=== PATIENT | female | born 1975 | race Caucasian/White ===

== ENCOUNTER 2017-11-19 15:34 | Emergency (ER) | payer BC ==
[~2017-11-19] VITALS: Ht 167.6 cm; Wt 94.5 kg
[2017-11-19 15:48] VITALS: TEMP 36.9; Ht 167.6 cm; Wt 94.5 kg
[2017-11-19] MEDS ORDERED: ONDANSETRON INJ 2 MG/ML 2 ML VIAL IV STA (16:09)
[2017-11-19] MEDS ORDERED: SODIUM CHLORIDE 0.9% 1000ML 1,000 ML IV STA (16:09)
[2017-11-19] MEDS ORDERED: MoRPHine SULFATE 4 MG/ML 1 ML CARP\\VIAL IV PRN (16:15)
[2017-11-19 17:10] LABS: BASO % 0.3 %; BASO ABS # 0.03 K/uL (0-0.2); EOS % 0.7 %; EOS ABS # 0.07 K/uL (0-0.5); HEMATOCRIT 45.7 % (37-47); HEMOGLOBIN 15.7 g/dL (12.0-16.0); IG# 0.02 K/uL (0.00-0.02); LYMPH % 17.2 %; LYMPH ABS # 1.65 K/uL (1.2-3.4); MEAN CELL VOLUME 86.1 fL (80-100); MEAN CORPUSCULAR HEMOGLOBIN 29.6 pg (25-34); MEAN CORPUSCULAR HGB CONC 34.4 g/dl (32-36); MEAN PLATELET VOLUME 9.6 fL (7.4-10.4); MONO % 3.6 %; MONO ABS # 0.35 K/uL (0.11-0.59); NEUT ABS # 7.48 K/uL (1.4-6.5); PLATELET COUNT 332 K/uL (130-400); RED CELL DISTRIBUTION WIDTH CV 13.4 % (11.5-14.5); RED CELL DISTRIBUTION WIDTH SD 41.9 fL (36.4-46.3)
[2017-11-19 17:25] LABS: ALBUMIN 4.3 gm/dl (3.4-5.0); CALCIUM 9.5 mg/dl (8.5-10.1); CREATININE 0.73 mg/dl (0.60-1.20); POTASSIUM 3.8 mmol/L (3.5-5.1); TOTAL PROTEIN 8.2 gm/dl (6.4-8.2)
[2017-11-19] MEDS ORDERED: OPTIRAY 320 IV PRN (17:30)
[2017-11-19 17:56] LABS: PTT PATIENT 24.8 SECONDS (21.0-31.0)
--- NOTE | 2017-11-19 19:10 | DIAGNOSTIC IMAGING REPORT ---
ABD/PELVIS IV AND ORAL CONT CT DOSE: 781.59 mGy.cm HISTORY: Pain ABDOMINAL PAIN/GI TECHNIQUE: Multiaxial CT images of the abdomen and pelvis were performed following the use of intravenous and oral contrast. A dose lowering technique was utilized adhering to the principles of ALARA. COMPARISON STUDY: 07/24/2009 FINDINGS: Lung bases are clear. Liver spleen and pancreas are uniform. Kidneys negative for hydronephrosis. Bowel pattern is considered nonobstructive. There is a 6 x 5 cm left ovarian cyst. Uterus is midline. Bladder is midline. There is a slight degree of wall thickening of the sigmoid and descending colon. IMPRESSION: 1. Left ovarian cyst measuring 6 x 5 cm. 2. Slight wall edema of the sigmoid and descending colon indicative of either technically poor distention versus mild colitis. The above report was generated using voice recognition software. It may contain grammatical, syntax or spelling errors. Electronically signed by: Hector Jain M.D. 11/19/2017 7:09 PM Dictated Date/Time: 11/19/2017 7:05 PM
[2017-11-19] MEDS ORDERED: ONDA4TAB10 SL (19:42)
[2017-11-19] MEDS ORDERED: ONDANSETRON HOME PACK 4MG OD TAB PO ONE (19:45)
[2017-11-19 19:50] VITALS: BP 129/71; PULSE 74; O2SAT 97
--- NOTE | 2017-11-19 23:27 | EMERGENCY ROOM VISIT NOTE ---
ED Visit Note First contact with patient: 15:52 Chief Complaint: Right sided back pain, lower abdominal pain and bloody stools. History of Present Illness: Ms. Vines is a 42-year-old white female who ambulates into the ED complaining of right mid thoracic back pain, lower abdominal pain predominantly on the right, nausea and bright red blood per rectum. Starkly patient reports she has a history of reflux, gastritis, hiatal hernia, hematemesis and is status post appendectomy and tubal ligation. Patient reports approximately 1 week ago she started developing right side mid thoracic back pain. Since that time her pain has been constant. Then this morning approximately 7 AM she reports an acute onset of mid to lower bilateral abdominal pain with right-sided prominence. Since that time her pain has been constant and waxes and wanes in intensity. At its worst she describes her discomfort as sharp and rates her discomfort 6/10. She is unsure if the back pain is related to the back pain because it does not exacerbate at the same time. She has not identified any aggravating or alleviating factors related to the pain. She has not taken any medications for pain prior to arrival at the hospital. Associated with her pain she reports she has been having hot flashes and chills but has not checked her temperature to see if she has been febrile, she has been nauseated but has not vomited but has had dry heaves and approximately 30 minutes after the onset of pain she reports that she has had bright red blood per rectum and has had multiple bowel movements all of which have been bright red. Additionally she reports her last menstrual cycle which ended November 10 was normal intensity but she reports that she had significant bleeding and pain; she has not followed up with [facility]. Patient denies skin eruptions, skin color changes, headache, dizziness, lightheadedness, upper respiratory tract symptoms, chest pain, shortness of breath, urinary symptoms, hematuria, vaginal bleeding, vaginal discharge, other abnormal bleeding, easy bruising. Review of Systems: As noted above in history of present illness. All body systems were reviewed and found to be negative as noted above. Past Medical History: As previously noted, asthma and status post unspecified sinus surgery. Current Medications: Patient denies. Allergies to Medications: Codeine; nausea/vomiting. Social History: Patient is currently employed; she feels safe in her home environment; she admits to tobacco use and denies alcohol use Physical Examination: Vital Signs: Date Time Temp Pulse Resp B/P (MAP) Pulse Ox O2 Delivery O2 Flow Rate FiO2 11/19/17 19:50 74 18 129/71 97 11/19/17 19:07 71 16 132/74 95 Room Air 11/19/17 17:54 77 20 147/87 98 Room Air 11/19/17 16:50 80 18 130/88 97 Room Air 11/19/17 15:48 36.9 76 20 124/83 98 Room Air GENERAL: 42-year-old female in mild distress due to pain, nontoxic-appearing, afebrile and hemodynamically stable. NEUROLOGICAL: Awake, alert and oriented to person, place and time. Answering questions appropriately and following commands. Normal gait. Good hand eye coordination. No focal motor or sensory deficits. SKIN: Warm, dry and pink. No soft tissue eruptions or trauma noted. HEENT: Atraumatic and normocephalic. PERRLA. Sclera white and conjunctiva pink. No drainage from naris. Oral cavity moist and pink. Pharynx is nonerythematous or edematous. Speech normal. No lymphadenopathy. Trachea midline. No jugular venous distention. BACK: No tenderness over the bony thoracic and lumbar spine. Mild tenderness in the right sided paraspinous muscles in the CVA area. No palpable muscle spasm. Right sided CVA tenderness. THORAX: Lungs sounds are clear to auscultation and equal bilaterally with symmetrical chest wall. No wheezing, rales or rhonchi. No crepitus, tenderness , subcutaneous air or deformities noted. HEART: Regular rate and rhythm. No gallops, rubs or murmurs are appreciated. ABDOMEN: Obese and soft with mild mid to lower quadrant abdominal pain and mild epigastric pain. Positive bowel sounds in all quadrants. No guarding, rigidity or organomegaly. RECTUM: Small external hemorrhoid that is not actively bleeding noted at approximately 6:00. Normal rectal tone. No palpable rectal masses. Visibly bright red blood from sample. Guaiac tested positive. EXTREMITIES: Moves all extremities well on command and with purpose. All distal neurovascular statuses are intact and equal bilaterally. No calf tenderness or cords. ED Course: Patient is assessed as noted above. Patient's medication list was reviewed. Laboratory Testing: Test 11/19/17 16:45 11/19/17 17:08 11/19/17 17:37 Range/Units White Blood Count 9.60 4.8-10.8 K/uL Red Blood Count 5.31 4.2-5.4 M/uL Hemoglobin 15.7 12.0-16.0 g/dL Hematocrit 45.7 37-47 % Mean Corpuscular Volume 86.1 80-100 fL Mean Corpuscular Hemoglobin 29.6 25-34 pg Mean Corpuscular Hemoglobin Concent 34.4 32-36 g/dl Platelet Count 332 130-400 K/uL Mean Platelet Volume 9.6 7.4-10.4 fL Neutrophils (%) (Auto) 78.0 % Lymphocytes (%) (Auto) 17.2 % Monocytes (%) (Auto) 3.6 % Eosinophils (%) (Auto) 0.7 % Basophils (%) (Auto) 0.3 % Neutrophils # (Auto) 7.48 1.4-6.5 K/uL Lymphocytes # (Auto) 1.65 1.2-3.4 K/uL Monocytes # (Auto) 0.35 0.11-0.59 K/uL Eosinophils # (Auto) 0.07 0-0.5 K/uL Basophils # (Auto) 0.03 0-0.2 K/uL RDW Standard Deviation 41.9 36.4-46.3 fL RDW Coefficient of Variation 13.4 11.5-14.5 % Immature Granulocyte % (Auto) 0.2 % Immature Granulocyte # (Auto) 0.02 0.00-0.02 K/uL Sodium Level 137 136-145 mmol/L Potassium Level 3.8 3.5-5.1 mmol/L Chloride Level 104 98-107 mmol/L Carbon Dioxide Level 27 21-32 mmol/L Anion Gap 6.0 3-11 mmol/L Blood Urea Nitrogen 10 7-18 mg/dl Creatinine 0.73 0.60-1.20 mg/dl Est Creatinine Clear Calc Drug Dose 113.9 ml/min Estimated GFR () 116.1 Estimated GFR (Non- 100.2 BUN/Creatinine Ratio 13.9 10-20 Random Glucose 128 70-99 mg/dl Calcium Level 9.5 8.5-10.1 mg/dl Total Bilirubin 0.4 0.2-1 mg/dl Direct Bilirubin 0.1 0-0.2 mg/dl Aspartate Amino Transf (AST/SGOT) 13 15-37 U/L Alanine Aminotransferase (ALT/SGPT) 22 12-78 U/L Alkaline Phosphatase 92 45-117 U/L Total Protein 8.2 6.4-8.2 gm/dl Albumin 4.3 3.4-5.0 gm/dl Lipase 129 73-393 U/L Human Chorionic Gonadotropin, Qual NEG NEG Urine Color YELLOW Urine Appearance CLEAR CLEAR Urine pH 5.0 4.5-7.5 Urine Specific [place] 1.013 1.000-1.030 Urine Protein NEG NEG Urine Glucose (UA) NEG NEG Urine Ketones NEG NEG Urine Occult Blood NEG NEG Urine Nitrite NEG NEG Urine Bilirubin NEG NEG Urine Urobilinogen NEG NEG Urine Leukocyte Esterase NEG NEG Prothrombin Time 10.4 9.0-12.0 SECONDS Prothromb Time International Ratio 1.0 0.9-1.1 Activated Partial Thromboplast Time 24.8 21.0-31.0 SECONDS Partial Thromboplastin Ratio 1.0 Contrast Abdominal/Pelvic CT: Were reviewed by myself and read by the radiologist showing lung bases, liver/spleen/pancreas are uniform, kidneys are negative for hydronephrosis, bowel pattern is nonobstructive, 6 x 5 cm left ovarian cyst, uterus is midline, bladder is midline, slight degree of wall thickening of the sigmoid and descending colon indicative of poor distention or mild colitis. Patient was initially hydrated with normal saline; patient was offered 4 mg of morphine IV for pain and 4 mg of Zofran IV and declined; "I am stubborn." Patient was reassessed multiple times during her stay in the emergency department. I did request a stool study from the patient but she was unable to provide one. Patient's case was reviewed with Dr. Augustin; we agreed on diagnostic approach, treatment, disposition and plan. Patient was educated about today's findings and instructed on her treatment plan ; she verbalized understanding and agreement with this plan. Clinical Impression: Acute hemorrhagic colitis. Right sided back pain. Hematochezia. Decision-Making: Initially my differential diagnosis I considered pyelonephritis , pancreatitis, perforated viscus, acute cholecystitis, muscle spasm, ureter calculus and other causes. Disposition: Patient discharged home in stable condition; prior to departure she was reassessed and subjectively reported she was feeling better and rated her discomfort 5/10. She reported resolution of nausea. Plan: Comfort measures including ibuprofen and acetaminophen were discussed with the patient. Patient was prescribed Zofran ODT, 4 mg every 6 hours for nausea/vomiting. Patient was encouraged use a bland diet and stay well-hydrated with increased clear fluids. Patient was encouraged to call her PCP in the morning and inform them of today' s ED visit and request follow-up care and treatment and possible referral to gastroenterology. Patient was encouraged return the ED for worsening/uncontrolled pain, fevers, worsening nausea/vomiting, worsening bloody stools or any new/concerning symptoms.
== END 2017-11-19 19:49 | disposition home or self-care (01) ==
LOC: C.EDB 15:36 → C.EDA 19:49
DX: K52.9 Noninfective gastroenteritis and colitis, unspecified (principal); M54.5 Low back pain; K92.1 Melena; F17.200 Nicotine dependence, unspecified, uncomplicated; Z88.5 Allergy status to narcotic agent

== ENCOUNTER 2017-11-21 15:51 | Emergency (ER) | payer BC ==
[~2017-11-21] VITALS: Ht 167.6 cm; Wt 95.3 kg
[~2017-11-21 15:51] MED LIST: ONDA4TAB10 SL
[2017-11-21 15:59] VITALS: Ht 167.6 cm; Wt 95.3 kg
[2017-11-21] MEDS ORDERED: ACETAMINOPHEN IV 100 ML IV STA (16:46)
[2017-11-21] MEDS ORDERED: SODIUM CHLORIDE 0.9% 1000ML 1,000 ML IV STA (16:46)
[2017-11-21] MEDS ORDERED: ONDANSETRON INJ 2 MG/ML 2 ML VIAL IV STA (16:46)
[2017-11-21] MEDS ORDERED: PANTOprazole INJ 40 MG in SYRINGE 0 ML IV ONE (17:00)
[2017-11-21] MEDS ORDERED: OPTIRAY 320 IV PRN (17:00)
--- NOTE | 2017-11-21 17:10 | EMERGENCY ROOM VISIT NOTE ---
History Report prepared by Juan: Nicholas Ayala Under the Supervision of: Dr. Anderson Funez M.D. First contact with patient: 16:42 Chief Complaint: GI ASSESSMENT Stated Complaint: PAIN IN RIGHT SIDE, VOMIT BLOOD Nursing Triage Summary: Patient ambulatory to triage with an upright and steady gait, states "I was in on Monday. I was having a lot of blood out of my rectum. I am having a lot of pain under my right breast, in my right flank and in my right lower back. I vomited up blood yesterday afternoon that was bright red. I haven't had an appetite since then, so I haven't eaten. I am drinking fluids, however. I haven't had a BM since yster so I don't know if the bleeding is continuing. With the BM yesterday, I had bright red blood. I followed up with my PCP today and he sent me back over." History of Present Illness The patient is a 42 year old female who presents to the Emergency Room with complaints of abdominal pain, intermittent vomiting with blood, and rectal bleeding. The patient reports that she was in the ER 2 days ago for her symptoms. She states that she followed up with her PCP, Dr. Haley Gray today, who instructed her to report to the ER with concerns of active bleeding. She notes that her vomit and her stool are red. She states that she vomited with blood and had multiple bowel movements with blood 2 days ago, but notes that yesterday she only vomited once and had 3 bowel movements. She states that she did not vomit today, but also reports that she did not have anything to eat. She notes that she did not have a bowel movement today. The patient reports a low grade fever yesterday, and states that she has been nauseous since 2 days ago. She notes that her abdominal pain radiates to her right side and back. The patient also reports that she had a migraine that started an hour ago, noting a history of migraines. She states that she last had liquids today at 1 PM. The patient denies a history of these symptoms. She denies taking blood thinners and reports that she is not on regular medications. She denies regular alcohol use. Source of History: patient Onset: 2 days ago Position: abdomen, other (rectum) Quality: other (vomiting, rectal bleeding) Timing: intermittent (vomiting) Associated Symptoms: + fevers (yesterday), + headache Review of Systems See HPI for pertinent positives and negatives. A total of ten systems were reviewed and were otherwise negative. Past Medical & Surgical Medical Problems: (1) Asthma (2) Stomach problems Family History Cancer Diabetes mellitus Heart disease Hypertension Social History Smoking Status: Current Every Day Smoker Current/Historical Medications Scheduled Ondasetron Odt (Zofran Odt), 4 MG SL Q6H Ondasetron Odt (Zofran Odt), 4 MG SL Q6H Pantoprazole (Protonix), 1 TAB PO DAILY Prednisone (Prednisone), 3 TAB PO DAILY Allergies Coded Allergies: Codeine (Verified Allergy, Unknown, 11/21/17) Physical Exam Vital Signs Date Time Temp Pulse Resp B/P (MAP) Pulse Ox O2 Delivery O2 Flow Rate FiO2 11/21/17 21:47 37.0 57 18 124/68 95 11/21/17 21:37 57 18 124/68 95 Room Air 11/21/17 20:47 60 11/21/17 20:10 59 18 122/76 96 Room Air 11/21/17 18:33 58 12 127/65 97 Room Air 11/21/17 15:59 37.0 77 20 114/77 94 Room Air Physical Exam GENERAL: Awake, alert, well-appearing, in no distress HENT: Normocephalic, atraumatic. Mucous membranes are dry. EYES: Normal conjunctiva. Sclera non-icteric. NECK: Supple. No nuchal rigidity. FROM. No JVD. RESPIRATORY: Clear to auscultation. CARDIAC: Regular rate, normal rhythm. Extremities warm and well perfused. Pulses equal. ABDOMEN: Soft, non-distended. Mild right lower quadrant tenderness to palpation. No rebound or guarding. No masses. RECTAL: Female early breastfeeding care specialist present. Brown stool, no melena, and no gross blood. Scant guaiac positive. MUSCULOSKELETAL: Chest examination reveals no tenderness. The back is symmetrical on inspection without obvious abnormality. There is no CVA tenderness to palpation. No joint edema. LOWER EXTREMITIES: Calves are equal size bilaterally and non-tender. No edema. No discoloration. NEURO: Normal sensorium. No sensory or motor deficits noted. SKIN: No rash or jaundice noted. Medical Decision & Procedures ER Provider Diagnostic Interpretation: Radiology results as stated below per my review and radiologist interpretation: ABD/PELVIS IV CONTRAST ONLY CLINICAL HISTORY: 42 years-old Female presenting with RLQ pain, hematochezia, hemoptysis. TECHNIQUE: Multidetector CT of the abdomen and pelvis was performed after the administration of intravenous contrast. IV contrast: 92 mL of Optiray 320. A dose lowering technique was used consistent with the principles of ALARA (as low as reasonably achievable). COMPARISON: 11/19/2017. CT DOSE (mGy.cm): The estimated cumulative dose is 577.46 mGy.cm. FINDINGS: Business Objects Developer topogram: Unremarkable. Lung bases: Minimal basilar opacities, likely atelectasis. Normal heart size. No pericardial or pleural effusion. Liver: Normal morphology. No liver lesion. Patent hepatic vasculature. Biliary: No intrahepatic or extrahepatic biliary ductal dilatation. Normal gallbladder. Pancreas: Normal. Spleen: Normal. Adrenal glands: Normal. Kidneys and ureters: Normal. No hydronephrosis. Bladder: Normal. Pelvic organs: Normal uterus. Normal right ovary. The left ovary contains a 6.7 cm cystic lesion. This appears simple. Bowel: Mild gaseous distention of proximal small bowel. No bowel obstruction. Normal appearance of the colon and rectum. The presence of oral contrast and large bowel limits evaluation for gastrointestinal hemorrhage. Peritoneal cavity: No free fluid or intraperitoneal gas. Lymph nodes: No enlarged lymph nodes in the abdomen or pelvis. Vasculature: Aorta and IVC patent and normal in caliber. Abdominal wall: Normal. Musculoskeletal: Normal. IMPRESSION: 1. No acute intra-abdominal bowel pathology. 2. 6.7 cm left ovarian cystic lesion, which is simple appearing. Follow-up pelvic ultrasound recommended given the size to ensure resolution. Primary care physician (PCP) and/or surgical follow-up recommended until clinical, surgical, or pathologic diagnosis established. Electronically signed by: Dariel Erazo M.D. 11/21/2017 6:32 PM Dictated Date/Time: 11/21/2017 6:27 PM CHEST ONE VIEW PORTABLE CLINICAL HISTORY: 42 years-old Female presenting with ABDOMINAL PAIN/GI. TECHNIQUE: Portable upright AP view of the chest was obtained. COMPARISON: 03/20/2011. FINDINGS: Cardiomediastinal silhouette normal. No focal opacity. No large effusion or pneumothorax. Osseous structures normal. Upper abdomen normal. IMPRESSION: 1. No acute cardiopulmonary disease. Electronically signed by: Dariel Erazo M.D. 11/21/2017 6:07 PM Dictated Date/Time: 11/21/2017 6:06 PM Laboratory Results 11/21/17 17:11 Red Blood Count 4.79, Mean Corpuscular Volume 86.8, Mean Corpuscular Hemoglobin 29.2, Mean Corpuscular Hemoglobin Concent 33.7, Mean Platelet Volume 9.5, Neutrophils (%) (Auto) 66.3, Lymphocytes (%) (Auto) 29.5, Monocytes (%) (Auto) 2.9, Eosinophils (%) (Auto) 1.0, Basophils (%) (Auto) 0.2, Neutrophils # (Auto) 5.78, Lymphocytes # (Auto) 2.57, Monocytes # (Auto) 0.25, Eosinophils # (Auto) 0.09, Basophils # (Auto) 0.02 11/21/17 17:11 Test 11/21/17 17:11 11/21/17 19:05 White Blood Count 8.72 K/uL (4.8-10.8) Red Blood Count 4.79 M/uL (4.2-5.4) Hemoglobin 14.0 g/dL (12.0-16.0) Hematocrit 41.6 % (37-47) Mean Corpuscular Volume 86.8 fL (80-100) Mean Corpuscular Hemoglobin 29.2 pg (25-34) Mean Corpuscular Hemoglobin Concent 33.7 g/dl (32-36) Platelet Count 325 K/uL (130-400) Mean Platelet Volume 9.5 fL (7.4-10.4) Neutrophils (%) (Auto) 66.3 % Lymphocytes (%) (Auto) 29.5 % Monocytes (%) (Auto) 2.9 % Eosinophils (%) (Auto) 1.0 % Basophils (%) (Auto) 0.2 % Neutrophils # (Auto) 5.78 K/uL (1.4-6.5) Lymphocytes # (Auto) 2.57 K/uL (1.2-3.4) Monocytes # (Auto) 0.25 K/uL (0.11-0.59) Eosinophils # (Auto) 0.09 K/uL (0-0.5) Basophils # (Auto) 0.02 K/uL (0-0.2) RDW Standard Deviation 42.9 fL (36.4-46.3) RDW Coefficient of Variation 13.5 % (11.5-14.5) Immature Granulocyte % (Auto) 0.1 % Immature Granulocyte # (Auto) 0.01 K/uL (0.00-0.02) Anion Gap 7.0 mmol/L (3-11) Est Creatinine Clear Calc Drug Dose 108.4 ml/min Estimated GFR () 108.8 Estimated GFR (Non- 93.9 BUN/Creatinine Ratio 11.2 (10-20) Calcium Level 8.9 mg/dl (8.5-10.1) Total Bilirubin 0.4 mg/dl (0.2-1) Direct Bilirubin < 0.1 mg/dl (0-0.2) Aspartate Amino Transf (AST/SGOT) 11 U/L (15-37) Alanine Aminotransferase (ALT/SGPT) 20 U/L (12-78) Alkaline Phosphatase 79 U/L (45-117) Total Protein 7.1 gm/dl (6.4-8.2) Albumin 3.6 gm/dl (3.4-5.0) Lipase 124 U/L (73-393) Urine Color YELLOW Urine Appearance CLEAR (CLEAR) Urine pH 5.0 (4.5-7.5) Urine Specific [place] > 1.045 (1.000-1.030) Urine Protein NEG (NEG) Urine Glucose (UA) NEG (NEG) Urine Ketones NEG (NEG) Urine Occult Blood NEG (NEG) Urine Nitrite NEG (NEG) Urine Bilirubin NEG (NEG) Urine Urobilinogen NEG (NEG) Urine Leukocyte Esterase NEG (NEG) Urine Test NEG (NEG) Laboratory results reviewed by me Medications Administered Medications (Trade) Dose Ordered Sig/Alison Route Start Time Stop Time Status Last Admin Dose Admin Sodium Chloride 1,000 ml @ 999 mls/hr Q1H1M STAT IV 11/21/17 16:46 11/21/17 17:46 DC 11/21/17 16:46 999 MLS/HR Ondansetron HCl (Zofran Inj) 4 mg NOW STAT IV 11/21/17 16:46 11/21/17 16:54 DC 11/21/17 16:46 4 MG Pantoprazole Sodium 40 mg/ Syringe 10 ml @ 5 mls/min NOW ONCE IV 11/21/17 17:00 11/21/17 17:01 DC 11/21/17 17:00 5 MLS/MIN Acetaminophen 100 ml @ 400 mls/hr NOW STAT IV 11/21/17 16:46 11/21/17 17:00 DC 11/21/17 16:46 400 MLS/HR Prednisone (PredniSONE TAB) 60 mg NOW STAT PO 11/21/17 21:24 11/21/17 21:25 DC 11/21/17 21:41 60 MG ED Course 1647: The patient was evaluated in room C6. A complete history and physical exam was performed. 1734: I performed a rectal exam on the patient with a female early breastfeeding care specialist present. The exam showed brown stool, no melena, and no gross blood. Scant guaiac positive. 1908: I discussed the patient's case with Dr. Howard - Segundo GALLEGO. He felt it was reasonable to admit the patient based on her case, and states a possible endoscopy can be given. 1933: I updated the patient with her current results. 1935: I spoke to Dr. Zeng - [facility] Hospitalist. He will reevaluate the patient for hospitalization. Medical Decision I reviewed the patient's past medical history, medications, and the nursing notes as described above. Differential diagnosis: Etiologies such as appendicitis, diverticulitis, PUD, biliary pathology, UTI, pancreatitis, obstruction, mesenteric ischemia, aortic pathology, infections, inflammatory bowel disease, renal colic, as well as others were entertained. The patient is a 42-year-old woman with a past medical history of migraines who presents emergency department with persistent right lower quadrant abdominal pain associated hematochezia but then developed several episodes of hematemesis (food covered in red blood) yesterday now presents emergency department after following up with her PCP today for the symptoms in the setting of being seen on Monday here in the emergency department with unremarkable labs, negative hcg , and CT demonstrating possible colitis per hpi. Of note, patient reports that bloody emesis occurred on first episode of vomiting. On arrival the patient is no acute distress, afebrile stable vital signs. On exam, mild right lower quadrant tenderness without peritoneal signs. Rectal exam demonstrates brown stool that is scant guaiac positive. No red blood or melena. Labs unremarkable. Hemoglobin is 14.0 down from 15.7 on 11/19 however also in the setting receiving IV fluids on her prior ED visit. Chemistry unremarkable with BUN 9. No evidence of acidosis. CT abdomen and pelvis unremarkable without acute findings, although some limitation given residual oral contrast within the colon. Revisualization of left 6.7cm, apparent simple ovarian cyst. Of note , no free fluid on CT and no left sided abdominal sx. While reassuring w/u with stable vital signs and no repeat hematemesis/hematochezia today and thus no emergent indication for admission/intervention, this is the patient's second ED visit for similar sx and so she is agreeable for admission. Case was discussed with JULIÁN Saldaña on-call for segundo gray, given the patient's repeat visit for similar GI bleed symptoms, we agree it is reasonable to admit for observation and possible endoscopy. Case was discussed with Moises Goff, [facility] [place] [place] admitting resident and they will evaluate the patient for possible admission. Patient was evaluated by resident and the patient was subsequently agreeable for outpatient f/u with GI for GI bleeding and with DIGITAL STRATEGY MANAGER for left ovarian cyst identified on CT. Resident d/w CM to assist with arranging prompt outpatient follow-ups. Given there is no explanation at this time for the patient's right lower quadrant tenderness I explained to the patient that narcotics are not indicated. However, she was agreeable to try a short course of prednisone as well as Tylenol. Patient advised to avoid ibuprofen at this time given her GI bleeding. Patient will take daily PPI. Patient understands strict return instructions to return to ED. Findings and plan for follow-up reviewed with patient. Patient agreeable and d/c'd per discharge instructions. Medication Reconcilliation Current Medication List: was personally reviewed by nc Blood Pressure Screening Patient's blood pressure: Normal blood pressure Blood pressure disposition: Did not require urgent referral Consults Time Called: 1848 Consulting Physician: Dr. Howard - Segundo GALLEGO Returned Call: 1908 I discussed the patient's case with Dr. Howard - on-call for Segundo GALLGEO. He felt it was reasonable to admit the patient based on her case, and states a possible endoscopy can be given. Additional Consults: Time Called: 1929 Consulted Physician: Dr. Zeng - [facility] Hospitalist Returned Call: 1935 Additional Comments: I spoke to Dr. Goff - [facility] admitting resident. He will reevaluate the patient for admission. Impression Primary Impression: GI bleed Additional Impression: Left ovarian cyst Scribe Attestation The scribe's documentation has been prepared under my direction and personally reviewed by me in its entirety. I confirm that the note above accurately reflects all work, treatment, procedures, and medical decision making performed by me. Departure Information Dispostion Home / Self-Care Prescriptions Prednisone (Prednisone) 20 Mg Tab 3 TAB PO DAILY for 4 Days, #12 TAB FOR 4 DAYS Prov: Anderson Funez M.D. 11/21/17 Pantoprazole (PROTONIX) 40 Mg Tab 1 TAB PO DAILY for 14 Days, #14 TAB Prov: Anderson Funez M.D. 11/21/17 Ondasetron Odt (ZOFRAN ODT) 4 Mg Tab 4 MG SL Q6H for Nausea, #10 TAB Prov: Anderson Funez M.D. 11/21/17 Referrals Leonel De Leon M.D. (PCP) Patient Instructions ED Cyst Ovarian, GI Bleeding - [facility], [facility] Additional Instructions Please follow up with gastroenterology and gynecology as will be arranged by our case management team for re-evaluation. The cause of your symptoms is unclear at this time however will require further evaluation with likely endoscopy. Additionally you should follow-up with gynecology for your left ovarian cyst. Otherwise, your exam, lab results, and CT scan did not show signs of an emergent condition at this time. Acetaminophen for pain and fevers as needed. Zofran as needed for nausea. Protonix for acid reduction. Prednisone, as anti-inflammatory, for your right lower abdominal pain. Drink plenty of fluids to ensure hydration. Return to the emergency department for worsening symptoms as described in the accompanying instructions. Problem Qualifiers
[2017-11-21 17:25] LABS: BASO % 0.2 %; BASO ABS # 0.02 K/uL (0-0.2); EOS ABS # 0.09 K/uL (0-0.5); HEMATOCRIT 41.6 % (37-47); IG# 0.01 K/uL (0.00-0.02); LYMPH % 29.5 %; LYMPH ABS # 2.57 K/uL (1.2-3.4); MEAN CELL VOLUME 86.8 fL (80-100); MEAN CORPUSCULAR HEMOGLOBIN 29.2 pg (25-34); MEAN CORPUSCULAR HGB CONC 33.7 g/dl (32-36); MEAN PLATELET VOLUME 9.5 fL (7.4-10.4); MONO % 2.9 %; MONO ABS # 0.25 K/uL (0.11-0.59); NEUT % 66.3 %; NEUT ABS # 5.78 K/uL (1.4-6.5); PLATELET COUNT 325 K/uL (130-400); RED CELL DISTRIBUTION WIDTH CV 13.5 % (11.5-14.5); RED CELL DISTRIBUTION WIDTH SD 42.9 fL (36.4-46.3); WHITE BLOOD COUNT 8.72 K/uL (4.8-10.8)
[2017-11-21 17:49] LABS: ALBUMIN 3.6 gm/dl (3.4-5.0); ALKALINE PHOSPHATASE 79 U/L (45-117); ALT/SGPT 20 U/L (12-78); AST/SGOT 11 U/L (15-37); BLOOD UREA NITROGEN 9 mg/dl (7-18); CALCIUM 8.9 mg/dl (8.5-10.1); CARBON DIOXIDE 26 mmol/L (21-32); CREATININE 0.77 mg/dl (0.60-1.20); GLUCOSE 79 mg/dl (70-99); LIPASE 124 U/L (73-393); POTASSIUM 3.9 mmol/L (3.5-5.1); SODIUM 139 mmol/L (136-145); TOTAL PROTEIN 7.1 gm/dl (6.4-8.2)
--- NOTE | 2017-11-21 18:08 | DIAGNOSTIC IMAGING REPORT ---
CHEST ONE VIEW PORTABLE CLINICAL HISTORY: 42 years-old Female presenting with ABDOMINAL PAIN/GI. TECHNIQUE: Portable upright AP view of the chest was obtained. COMPARISON: 03/20/2011. FINDINGS: Cardiomediastinal silhouette normal. No focal opacity. No large effusion or pneumothorax. Osseous structures normal. Upper abdomen normal. IMPRESSION: 1. No acute cardiopulmonary disease. Electronically signed by: Dariel Erazo M.D. 11/21/2017 6:07 PM Dictated Date/Time: 11/21/2017 6:06 PM
--- NOTE | 2017-11-21 18:33 | DIAGNOSTIC IMAGING REPORT ---
ABD/PELVIS IV CONTRAST ONLY CLINICAL HISTORY: 42 years-old Female presenting with RLQ pain, hematochezia, hemoptysis. TECHNIQUE: Multidetector CT of the abdomen and pelvis was performed after the administration of intravenous contrast. IV contrast: 92 mL of Optiray 320. A dose lowering technique was used consistent with the principles of ALARA (as low as reasonably achievable). COMPARISON: 11/19/2017. CT DOSE (mGy.cm): The estimated cumulative dose is 577.46 mGy.cm. FINDINGS: Middle School Technology Teacher topogram: Unremarkable. Lung bases: Minimal basilar opacities, likely atelectasis. Normal heart size. No pericardial or pleural effusion. Liver: Normal morphology. No liver lesion. Patent hepatic vasculature. Biliary: No intrahepatic or extrahepatic biliary ductal dilatation. Normal gallbladder. Pancreas: Normal. Spleen: Normal. Adrenal glands: Normal. Kidneys and ureters: Normal. No hydronephrosis. Bladder: Normal. Pelvic organs: Normal uterus. Normal right ovary. The left ovary contains a 6.7 cm cystic lesion. This appears simple. Bowel: Mild gaseous distention of proximal small bowel. No bowel obstruction. Normal appearance of the colon and rectum. The presence of oral contrast and large bowel limits evaluation for gastrointestinal hemorrhage. Peritoneal cavity: No free fluid or intraperitoneal gas. Lymph nodes: No enlarged lymph nodes in the abdomen or pelvis. Vasculature: Aorta and IVC patent and normal in caliber. Abdominal wall: Normal. Musculoskeletal: Normal. IMPRESSION: 1. No acute intra-abdominal bowel pathology. 2. 6.7 cm left ovarian cystic lesion, which is simple appearing. Follow-up pelvic ultrasound recommended given the size to ensure resolution. Primary care physician (PCP) and/or surgical follow-up recommended until clinical, surgical, or pathologic diagnosis established. Electronically signed by: Dariel Erazo M.D. 11/21/2017 6:32 PM Dictated Date/Time: 11/21/2017 6:27 PM
--- NOTE | 2017-11-21 20:28 | Medical Consult ---
Consultation Date of Consultation: Nov 21, 2017. Attending Physician: Reason for Consultation: GI bleed History of Present Illness Patient is a 42 year old female with no significant PMH that presented to [facility] from her PCP due to the history of a GI bleed and abdominal pain. She notes that her abdominal pain started on Monday when she woke up in the morning. It was located throughout her abdomen. She said it was a constant pain that was a 6/10. She said it was a sharp pain. The pain then moved to her Right lumbar area. It has been in the right lumbar area since yesterday. Associated with this abdominal was bright red bowel movements on Monday. She said she was passing pure blood with small clots in the toilet ball. This was not associated with stool and she was not having any rectal pain. She had a few of these bright red bloody bm's yesterday also. She also had 3 episodes of vomiting yesterday in which there was small amounts of bright red blood in the vomit. She has not had any further bloody bm's or vomiting today. She has not eaten anything today and she has had a decreased appetite. She notes that she has been having heavier painful periods over the last several months. They have been every 28 days. Her last pap was during her last . Patient notes she has night sweats, but denies any weight loss. She denies any urianry symptoms, rashes, new joint pain or recent travel. Past Medical/Surgical History Medical Problems: (1) Acute hemorrhagic colitis Status: Acute (2) GI bleed Status: Acute Family History Cancer Diabetes mellitus Heart disease Hypertension Ovarian cancer in her 3 aunts on her moms side Social History Smoking Status: Current Every Day Smoker Alcohol Use: none Drug Use: none Marital Status: in relationship Housing Status: lives with family Occupation Status: employed Allergies Coded Allergies: Codeine (Verified Allergy, Unknown, 11/21/17) Home Medications none Current Inpatient Medications Current Inpatient Medications Medications (Trade) Dose Ordered Sig/Alison Route Start Time Stop Time Status Last Admin Dose Admin Ioversol (Optiray 320) 100 ml UD PRN IV 11/21/17 17:00 11/25/17 16:59 Review of Systems 10 systems were reviewed and negative except as noted in the HPI Physical Exam Date Time Temp Pulse Resp B/P (MAP) Pulse Ox O2 Delivery O2 Flow Rate FiO2 11/21/17 20:10 59 18 122/76 96 Room Air 11/21/17 18:33 58 12 127/65 97 Room Air 11/21/17 15:59 37.0 77 20 114/77 94 Room Air General Appearance: WD/WN, no apparent distress ENT: hearing grossly normal, pharynx normal Neck: supple, no adenopathy, no JVD, no carotid bruits, trachea midline Respiratory/Chest: lungs clear, no respiratory distress, no accessory muscle use Cardiovascular: regular rate, rhythm, no murmur, normal peripheral pulses Abdomen/GI: normal bowel sounds, soft, + tenderness (RLQ tenderness, no rebound or guarding) Back: normal inspection, no muscle spasm, normal range of motion, + right CVA tenderness Extremities/Musculoskelatal: no calf tenderness, no pedal edema, normal range of motion Neurologic/Psych: no motor/sensory deficits, normal mood/affect, oriented x 3 Skin: normal color, warm/dry, no rash Laboratory Results Last 24 Hours Test 11/21/17 17:11 11/21/17 19:05 White Blood Count 8.72 K/uL Red Blood Count 4.79 M/uL Hemoglobin 14.0 g/dL Hematocrit 41.6 % Mean Corpuscular Volume 86.8 fL Mean Corpuscular Hemoglobin 29.2 pg Mean Corpuscular Hemoglobin Concent 33.7 g/dl Platelet Count 325 K/uL Mean Platelet Volume 9.5 fL Neutrophils (%) (Auto) 66.3 % Lymphocytes (%) (Auto) 29.5 % Monocytes (%) (Auto) 2.9 % Eosinophils (%) (Auto) 1.0 % Basophils (%) (Auto) 0.2 % Neutrophils # (Auto) 5.78 K/uL Lymphocytes # (Auto) 2.57 K/uL Monocytes # (Auto) 0.25 K/uL Eosinophils # (Auto) 0.09 K/uL Basophils # (Auto) 0.02 K/uL RDW Standard Deviation 42.9 fL RDW Coefficient of Variation 13.5 % Immature Granulocyte % (Auto) 0.1 % Immature Granulocyte # (Auto) 0.01 K/uL Sodium Level 139 mmol/L Potassium Level 3.9 mmol/L Chloride Level 106 mmol/L Carbon Dioxide Level 26 mmol/L Anion Gap 7.0 mmol/L Blood Urea Nitrogen 9 mg/dl Creatinine 0.77 mg/dl Est Creatinine Clear Calc Drug Dose 108.4 ml/min Estimated GFR () 108.8 Estimated GFR (Non- 93.9 BUN/Creatinine Ratio 11.2 Random Glucose 79 mg/dl Calcium Level 8.9 mg/dl Total Bilirubin 0.4 mg/dl Direct Bilirubin < 0.1 mg/dl Aspartate Amino Transf (AST/SGOT) 11 U/L Alanine Aminotransferase (ALT/SGPT) 20 U/L Alkaline Phosphatase 79 U/L Total Protein 7.1 gm/dl Albumin 3.6 gm/dl Lipase 124 U/L Urine Color YELLOW Urine Appearance CLEAR Urine pH 5.0 Urine Specific [place] > 1.045 Urine Protein NEG Urine Glucose (UA) NEG Urine Ketones NEG Urine Occult Blood NEG Urine Nitrite NEG Urine Bilirubin NEG Urine Urobilinogen NEG Urine Leukocyte Esterase NEG Assessment & Plan Patient is a 42 year old female who does not see her PCP regularly who presented to [facility] with bright red bowel movements, vomiting and diarrhea. In the ED her vitals were stable. She had a CBC, CMP, UA and lipase that were all unremarkable. She had a CT scan of her abdomen which showed a 6cm left ovarian cyst. She noted that she had not had any blood bowel movements or vomiting today. We will order a pelvic ultrasound to evaluate the patients ovarian cyst. We will also add a urine test as well as a CA-125. I spoke to Dr. Howard who said it would likely be safe to send the patient home if she were comfortable and agreeable to this. Patient was agreeable to be sent home with follow up with GI and OB-Unit Manager. Patient should be sent home with a PPI for her GI bleeding and advised to follow a BRAT diet. 1) Order urine and CA-125 2) Order pelvic US 3) Set up outpatient f/u with GI and Ob-Unit Manager for colonoscopy and upper EGD 4) Start PPI and follow BRAT diet 5) Follow up if worsening bleeding, pain or vomiting
[2017-11-21] MEDS ORDERED: PANT1TAB3 PO (21:23)
[2017-11-21] MEDS ORDERED: PRED20TA PO (21:23)
[2017-11-21] MEDS ORDERED: ONDA4TAB10 SL (21:23)
[2017-11-21 21:47] VITALS: BP 124/68; PULSE 57; TEMP 37; O2SAT 95
--- NOTE | 2017-11-24 12:46 | Pharmacy Progress Note ---
ED Pharmacist Progress Note Date of Service: Nov 24, 2017. Received call from [facility] pharmacy regarding patient. Patient had told pharmacist she was supposed to receive "a cream". Looked at patient visit notes from last two visits but do not see mention of a cream medications to be prescribed. Let [facility] pharmacist know that could not find in records at this time, she was going to follow-up with patient for more specific information.
== END 2017-11-21 21:48 | disposition home or self-care (01) ==
LOC: C.EDB 15:52 → C.EDC 21:48
DX: K92.2 Gastrointestinal hemorrhage, unspecified (principal); N83.202 Unspecified ovarian cyst, left side; G43.909 Migraine, unspecified, not intractable, without status migrainosus; J45.909 Unspecified asthma, uncomplicated; Z80.9 Family history of malignant neoplasm, unspecified; Z83.3 Family history of diabetes mellitus; Z82.49 Family history of ischemic heart disease and other diseases of the circulatory system; F17.210 Nicotine dependence, cigarettes, uncomplicated; Z79.899 Other long term (current) drug therapy

== ENCOUNTER 2019-04-22 19:14 | Observation (INO) ==
[2019-04-22] MEDS ORDERED: ACETAMINOPHEN 500 MG TAB PO STA (20:45)
[2019-04-22] MEDS ORDERED: KETOROLAC 30 MG/ML VIAL IV STA (20:45)
[2019-04-22] MEDS ORDERED: AMPICILLIN/SULBACTAM SOD 3,000 MG in 0.9 % SODIUM CHLORIDE 100 ML IV STA (20:45)
[2019-04-22 21:21] LABS: Basophils # (auto) 0.01 K/uL (0-0.2); Basophils % (auto) 0.1 %; Eosinophils # (auto) 0.01 K/uL (0-0.5); Eosinophils % (auto) 0.1 %; Hematocrit (blood only) 39.8 % (37-47); Hemoglobin 13.5 g/dL (12.0-16.0); Immature Granulocytes # (auto) 0.04 K/uL (0.00-0.02); Immature Granulocytes % (auto) 0.3 %; Lymphocytes # (auto) 1.03 K/uL (1.2-3.4); Lymphocytes % (auto) 8.3 %; Mean Corpuscular Hemoglobin 29.3 pg (25-34); Mean Corpuscular Hgb Conc 33.9 g/dL (32-36); Mean Corpuscular Volume 86.5 fL (80-100); Mean Platelet Volume 9.3 fL (7.4-10.4); Monocytes # (auto) 0.77 K/uL (0.11-0.59); Monocytes % (auto) 6.2 %; Neutrophils # (auto) 10.61 K/uL (1.4-6.5); Platelet Count 285 K/uL (130-400); RDW Coefficient of Variation 13.3 % (11.5-14.5); RDW Standard Deviation 42.4 fL (36.4-46.3); White Blood Count 12.47 K/uL (4.8-10.8)
--- NOTE | 2019-04-22 21:24 | Emergency Department Note ---
ED Provider Note CHIEF COMPLAINT: Right lower dental infection x2 weeks HISTORY OF PRESENT ILLNESS: Patient is a 43-year-old female who presents the emergency department for evaluation of an infection involving the right lower molar. She has had problems with this for almost 2 weeks. She was seen at [facility] on 04/11 and had dental x-rays performed. She was placed on amoxicillin 3 times daily for 7 days which she completed. While on the x-rays her symptoms improved slightly, she was off of the antibiotics for 3 days and her symptoms markedly worsened. She developed swelling in the gumline and in the right face today at work and has progressed as the day has gone on. She also started running fevers around 1500 today. She has been taking ibuprofen and rinsing her mouth with ice water. She called back to the dentist and they called in another prescription for amoxicillin. She notes a constant, throbbing pain in the right jawline that radiates towards her pentecostal, ear and into her throat. She currently rates her discomfort an 8/10. No difficulty breathing or swallowing. There is been no drainage or discharge from the mouth. REVIEW OF SYSTEMS: Review of systems as per HPI. All other systems reviewed were negative. 10 systems reviewed. PMH: Electronic medical records are reviewed and summarized as above/below. See Problem List. SOCIAL HISTORY: Patient lives at home with family. Employed. Smoker. PHYSICAL EXAM: Vital Signs: Reviewed Nurse's notes. CONSTITUTIONAL: Patient is an ill although nontoxic appearing 43-year-old female who is awake and alert and in obvious distress due to her pain and facial swelling. EYES: Pupils equal, round, reactive to light and accommodation. EOMs intact without nystagmus. Sclera are anicteric. ENT: Tympanic membranes intact, with normal landmarks. External canals are cl ear. Nasopharynx notes swollen mucosal membranes and thick rhinorrhea. Posterior pharynx is unremarkable. The patient overall has fair to poor dentition. The right first and second molars in question have obvious decay and fillings in place. The right first molar is tender to palpation. She has swelling of the right lower gumline with fluctuance concerning for abscess. No trismus. Mucous membranes are moist, no lesions, tongue and gums appear normal. FACE: Patient has swelling, erythema and increased warmth of the right cheek along the right mandible. Extends slightly into the submental space. NECK: No bruits auscultated. Supple, anterior and posterior cervical chain lymphadenopathy noted. No nuchal rigidity. CARDIOVASCULAR: Regular rate and rhythm, with normal S1 and S2, no murmur or gallop or rub is heard. No carotid bruits auscultated. No JVD. Peripheral pulses easily palpable. RESPIRATORY: Breath sounds equal and clear to auscultation without wheezes, rales, or rhonchi heard. Full and equal chest expansion without accessory muscle use or retractions. EMERGENCY DEPARTMENT COURSE: The patient was seen and assessed as above. Old records were reviewed. IV lock was initiated and laboratory studies were collected. White count slightly elevated at 22,400, with left shift and bandemia. Electrolytes are within normal limits. Lactic acid is normal. Patient was medicated with 1 g of Tylenol orally for her fever, Unasyn 3 g IV, Toradol [address] scan of the face with IV contrast was obtained. CT scan is consistent with an odontogenic abscess along the right body of the mandible arising from the right first molar. Associated inflammatory/cellulitic changes in the right perimandibular soft tissues are noted. The patient was reassessed. She had little relief with the IV medications and was ordered morphine 4 mg and Zofran 4 mg IV. Abscess was drained. Patient was reviewed with attending physician. It was felt that she would benefit from admission/observation for IV antibiotics and OMFS evaluation. Patient was reviewed with rn unit manager and consultation was placed with the [facility] for further care and management. Differential diagnoses entertained included dental abscess, facial cellulitis, facial abscess, Adrian's angina, among others. PROCEDURE NOTE: I&D right mandibular dental abscess The patient's right lower gumline was anesthetized with benzocaine jelly, then Cetacaine spray. Area of maximal fluctuance was incised with an 11 blade. A moderate amount of pus and blood drained. The patient irrigated her mouth thoroughly with normal saline solution She tolerated the procedure well. Impression & Plan Dental abscess, Cellulitis of face, Failure of outpatient treatment Past Med/Surg History Medical History Asthma (Chronic) Stomach problems (Chronic) Surgical History H/O sinus surgery H/O tubal ligation History of appendectomy Friedens teeth extracted Family History (Updated 02/25/19 @ 12:06 by Milena Hawley RN) Father Hypertension Cancer Heart disease Sister Cancer Social History Preferred Language: Estonian Communication Ability: Effective marital status: Single current occupational status: employed current occupation: Kindergarten Classroom Teacher Feels Safe at Home: Yes Smoking Status: Never smoker Hx Alcohol Use: No Hx Substance Use: No Results & Data Vital Signs Vital Signs - 24 hr 04/22/19 19:21 04/22/19 20:46 04/22/19 22:14 Temperature 37.7 C H 39.0 C H 38.1 C H Temperature Source Oral Oral Oral Pulse Rate 100 H Pulse Rate [Finger] 81 Respiratory Rate 18 17 Respiratory Depth Normal Blood Pressure 165/91 H Blood Pressure Mean 115 Pulse Oximetry 98 93 Oxygen Delivery Method Room Air Sepsis Recent Fever Within 48 Hours No Sepsis New/Unexplained Change in Mental Status No Sepsis Action Taken by Nursing No Action Required Home Medications Current Medication List: was personally reviewed by me Laboratory Data Attestation: I reviewed the patient's lab results. Result diagrams: 04/22/19 21:02 04/22/19 21:02 Lab Results 04/22/19 04/22/19 04/22/19 Range/Units 21:02 21:02 21:02 WBC 12.47 H (4.8-10.8) K/uL RBC 4.60 (4.2-5.4) M/uL Hgb 13.5 (12.0-16.0) g/dL Hct 39.8 (37-47) % MCV 86.5 (80-100) fL MCH 29.3 (25-34) pg MCHC 33.9 (32-36) g/dL RDW Std Deviation 42.4 (36.4-46.3) fL RDW Coeff of Macey 13.3 (11.5-14.5) % Plt Count 285 (130-400) K/uL MPV 9.3 (7.4-10.4) fL Immature Gran % (Auto) 0.3 % Neut % (Auto) 85.0 % Lymph % (Auto) 8.3 % [place] % (Auto) 6.2 % Eos % (Auto) 0.1 % Baso % (Auto) 0.1 % Immature Gran # (Auto) 0.04 H (0.00-0.02) K/uL Neut # (Auto) 10.61 H (1.4-6.5) K/uL Lymph # (Auto) 1.03 L (1.2-3.4) K/uL [place] # (Auto) 0.77 H (0.11-0.59) K/uL Eos # (Auto) 0.01 (0-0.5) K/uL Baso # (Auto) 0.01 (0-0.2) K/uL Sodium 139 (136-145) mmol/L Potassium 3.8 (3.5-5.1) mmol/L Chloride 106 (98-107) mmol/L Carbon Dioxide 26 (21-32) mmol/L Anion Gap 6.0 (3-11) BUN 8 (7-18) mg/dl Creatinine 0.81 (0.6-1.2) mg/dl Est Cr Clr Drug Dosing 98.4 ml/min Est GFR ( Amer) 101.7 Est GFR (Non-Af Amer) 87.7 BUN/Creatinine Ratio 9.9 L (10-20) Glucose 96 (70-99) mg/dl Lactate 1.0 (0.4-2.0) mmol/L Calcium 9.2 (8.5-10.1) mg/dl Administered Medications Ioversol (Optiray 320 100ml) 93 ml IV ONCE PRN PRN Reason: Interaction Checking Stop: 04/26/19 21:57 Last Admin: 04/22/19 21:58 Dose: 93 ml Documented by: [id number] Discontinued Medications Acetaminophen (Tylenol) 1,000 mg PO NOW STA Stop: 04/22/19 20:46 Last Admin: 04/22/19 21:26 Dose: 1,000 mg Documented by: [id number] Ampicillin Sodium/Sulbactam Sodium 3,000 mg/ Sodium Chloride 108 mls @ 200 mls/hr IV NOW STA; Protocol Stop: 04/22/19 21:17 Last Infusion: 04/22/19 23:18 Dose: 0 mls/hr Documented by: [id number] Admin: 04/22/19 22:20 Dose: 200 mls/hr Documented by: [id number] Ketorolac Tromethamine (Toradol) 30 mg IV NOW STA Stop: 04/22/19 20:46 Last Admin: 04/22/19 21:26 Dose: 30 mg Documented by: [id number] Morphine Sulfate (Morphine Sulfate) 4 mg IV NOW STA Stop: 04/22/19 23:04 Last Admin: 04/22/19 23:11 Dose: 4 mg Documented by: [id number] Ondansetron HCl (Zofran) 4 mg IV NOW STA Stop: 04/22/19 23:04 Last Admin: 04/22/19 23:11 Dose: 4 mg Documented by: [id number] Imaging Data Attestation: I personally reviewed and interpreted this imaging study as follows: Radiologist's Impression: CT facial bones w con CLINICAL HISTORY: 43 years-old Female presenting with RIGHT LOWER DENTAL ABSCESS. TECHNIQUE: Multidetector CT of the face was performed after the administration of intravenous contrast. IV contrast: 93 mL of Optiray 320. One or more dose lowering techniques were used consistent with the principles of ALARA (as low as reasonably achievable), including automatic exposure control, mA or kV adjustment to individual patient size, and/or use of iterative reconstruction. COMPARISON: CT sinuses from 12/09/2008. CT DOSE (mGy.cm): The estimated cumulative dose is 241.26 mGy.cm. FINDINGS: Tank Builder Supervisor topogram: Unremarkable. Extensive swelling and infiltration of the right premandibular soft tissues infiltrated subcutaneous fat, edema of the right platysma muscle, and a rim- enhancing laminar collection along the right body of the mandible measuring 4 mm in thickness and extending approximately 2 cm along the length of the mandible. Extensive associated hyperenhancement buccal mucosa. There is an associated. Apical lucency and dental caries of the right mandibular first molar. Subtle cor tical breakthrough along the buccal aspect of the right mandible noted (series 3 image 202). This region was not included within the field of view on the prior exam for comparison. The remaining teeth do not demonstrate periapical lucency or significant dental caries appreciable by CT. Amalgam limits evaluation. Nonspecific extensive mucosal thickening in the ethmoid air cells and maxillary sinuses. Aerated secretions also noted in the left maxillary sinus. Mastoid air cells clear. Limited intracranial evaluation within normal limits. Vasculature patent. Thyroid, parotid, submandibular glands normal. Orbits normal. Few prominent lymph nodes noted in the right submandibular region likely reactive. Cervical spine normal. IMPRESSION: 1. Odontogenic abscess measuring 20 x 4 mm along the right body of the mandible associated with cortical breakthrough at the periapical abscess at the right mandibular first molar. 2. Extensive associated cellulitis or inflammatory changes in the right perimandibular soft tissues. 3. Reactive right submandibular lymphadenopathy. 4. Aerated secretions in the left maxillary sinus associated with scattered mucosal thickening. Correlate clinically to exclude acute sinusitis. Blood Pressure Blood Pressure Findings: Elevated blood pressure Blood Pressure Disposition: elevated BP felt to be situational Discharge Plan Visit Data Chief Complaint: Dental/Oral Stated Complaint: PAIN IN RT SIDE OF JAW, SWELLING ED Provider: Emerita Augustin ED Midlevel Provider: Valerie Grace Discharge Problem: Dental abscess, Cellulitis of face, Failure of outpatient treatment Forms Stand Alone Forms: Typo Keyboards Prescriptions Prescriptions: No Action No Known Home Medications RF: 0 Referrals Referrals: Leonel De Leon III, MD [Primary Care Provider] -
[2019-04-22 21:47] LABS: BUN Creatinine Ratio 9.9 (10-20); Calcium 9.2 mg/dl (8.5-10.1); Creatinine Clr Calc Pharmacy 98.4 ml/min; Est GFR (African American) 101.7; Est GFR (Non-African American) 87.7; Potassium 3.8 mmol/L (3.5-5.1)
[2019-04-22] MEDS ORDERED: IOVERSOL 100ml IV PRN (21:58)
--- NOTE | 2019-04-22 22:16 | CT Scan Report ---
CT facial bones w con CLINICAL HISTORY: 43 years-old Female presenting with RIGHT LOWER DENTAL ABSCESS. TECHNIQUE: Multidetector CT of the face was performed after the administration of intravenous contras t. IV contrast: 93 mL of Optiray 320. One or more dose lowering techniques were used consistent with the principles of ALARA (as low as reasonably achievable), including automatic exposure control, mA o r kV adjustment to individual patient size, and/or use of iterative reconstruction. COMPARISON: CT sinuses from 12/09/2008. CT DOSE (mGy.cm): The estimated cumulative dose is 241.26 mGy.cm. FINDINGS: Dividend Clerk topogram: Unremarkable. Extensive swelling and infiltration of the right premandibular soft tissues infiltrated subcutaneous fat, edema of the right platysma muscle, and a rim-enhancing laminar collection along the right body of the mandible measuring 4 mm in thickness and extending approximately 2 cm along the length of the mandible. Extensive associated hyperenhancement buccal mucosa. There is an associated. Apical lucency and dental caries of the right mandibular first molar. Subtle cortical breakthrough along the buccal aspect of the right mandible noted (series 3 image 202). This region was not included within the fie ld of view on the prior exam for comparison. The remaining teeth do not demonstrate periapical lucency or significant dental caries appreciable by CT. Amalgam limits evaluation. Nonspecific extensive mucosal thickening in the ethmoid air cells and maxillary sinuses. Aerated secr etions also noted in the left maxillary sinus. Mastoid air cells clear. Limited intracranial evaluation within normal limits. Vasculature patent. Thyroid, parotid, submandibular glands normal. Orbits normal. Few prominent lymph nodes noted in the right submandibular region likely reactive. Cervical spine normal. IMPRESSION: 1. Odontogenic abscess measuring 20 x 4 mm along the right body of the mandible associated with godfrey ical breakthrough at the periapical abscess at the right mandibular first molar. 2. Extensive associated cellulitis or inflammatory changes in the right perimandibular soft tissues. 3. Reactive right submandibular lymphadenopathy. 4. Aerated secretions in the left maxillary sinus associated with scattered mucosal thickening. Tan elate clinically to exclude acute sinusitis. ACT 112: Negative or not required by law. Electronically signed by: Dariel Erazo M.D. 04/22/2019 10:14 PM
[2019-04-22] MEDS ORDERED: BENZOCAIN/TETRACA/BUTAM SPRAY 200 APPLN/20 GM SPRY EXT ONE (22:59)
[2019-04-22] MEDS ORDERED: CANNULA ONE (22:59)
[2019-04-22] MEDS ORDERED: MoRPHine SULFATE 4 MG/ML 1 ML CARP\\VIAL IV STA (23:03)
[2019-04-22] MEDS ORDERED: ONDANSETRON INJ 2 MG/ML 2 ML VIAL IV STA (23:03)
[2019-04-23] MEDS ORDERED: ONDANSETRON INJ 2 MG/ML 2 ML VIAL IV PRN (01:33)
[2019-04-23] MEDS ORDERED: ACETAMINOPHEN 325 MG TAB PO PRN (01:33)
--- NOTE | 2019-04-23 01:51 | History & Physical Report ---
Date of Service April 23, 2019 Assessment & Plan (1) Dental abscess: Dental abscess involving right lower molar/right facial cellulitis/failure of outpatient treatment- Patient was given a single dose of Unasyn 3 g IV after I&D in the ED. Placed on ceftriaxone 1 g IV daily and clindamycin 600 mg IV every 8 hours. Follow drainage culture and sensitivity. Acetaminophen 650 mg p.o. every 6 hours PRN mild pain or temperature. Tramadol 50 mg p.o. every 4 hours PRN moderate pain. Zofran 4 mg IV every 6 hours as needed. NSS + KCl 20 mEq at 100 mils per hour Present on Admission?: Yes (2) Cellulitis of face: See above Present on Admission?: Yes (3) Failure of outpatient treatment: See above Present on Admission?: Yes (4) Asthma: No symptoms Present on Admission?: Yes (5) Stomach problems: No symptoms Present on Admission?: Yes History of Present Illness To the Chief Complaint: The patient presents to the emergency department with persistent and worsening of her right lower molar infection and facial swelling despite outpatient antibiotic therapy Primary Care Provider: Leonel De Leon MD The patient is a 43-year-old female with a past medical history including GERD and asthma who presents to the emergency department with fevers, chills, persistence and worsening of right lower molar swelling and pain along with new right facial swelling. She initially been treated in the outpatient setting with 2 weeks of amoxicillin by her dentist, had a return of symptoms after 3 days, was then given additional prescription for amoxicillin. She presents the emergency department because of worsening symptoms. In the ED, she had incision and drainage performed, and was given a dose of Unasyn 3 g IV. Since Unasyn is on national back order, she will be admitted on ceftriaxone and clindamycin IV. Allergies Allergy/AdvReac Type Severity Reaction Status Date / Time codeine Allergy Unknown Unknown Verified 04/23/19 00:06 Home Medications Home Medications Medication Instructions Recorded Confirmed Type No Known Home Medications 04/23/19 04/23/19 History Past Med/Surg History Medical History Asthma (Chronic) Stomach problems (Chronic) Surgical History H/O sinus surgery H/O tubal ligation History of appendectomy [place] teeth extracted Family History (Updated 02/25/19 @ 12:06 by Milena Hawley RN) Father Hypertension Cancer Heart disease Sister Cancer Social History Preferred Language: Croatian Communication Ability: Effective marital status: Single current occupational status: employed 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 Feels Safe at Home: Yes Smoking Status: Never smoker Hx Alcohol Use: No Hx Substance Use: No Review of Systems Review of Systems: The patient denies chest pain, palpitations, shortness of breath, dyspnea on exertion, cough, lower extremity swelling, sore throat, fatigue, nausea, vomiting, diarrhea , constipation, abdominal pain, pelvic pain, blood in urine or stool, dysuria, urinary frequency or urgency, lightheadedness, dizziness, headache, memory loss, loss of consciousness, rash, abnormal bruising or bleeding, imbalance, focal or generalized weakness, numbness or tingling in arms or legs, generalized arthralgias or myalgias, back or neck pain, or night sweats. The review of systems is otherwise negative other than for that already noted above, and at least 10 systems have been reviewed. Physical Exam Physical Exam: The patient is awake, alert and oriented 3, well developed and well nourished, has a significant right mandibular and facial swelling, sitting upright in bed and in no acute distress. HEENT--PERRL, EOMI, mucous membranes and oropharynx dry. Neck--supple. No JVD. No bruits. Thyroid normal, trachea midline, no adenopathy. Heart--normal S1 and S2. No murmurs, rubs or gallops. Lungs--clear bilaterally, no respiratory distress, no accessory muscle use. Abdomen--normal bowel sounds and soft. Nontender. Nondistended. Extremities--no cyanosis or clubbing. No edema. There are good distal pulses b/l. Dermatologic--normal skin turgor, normal color, no abnormal lymph nodes, no rash. Neurologic--cranial nerves II through XII grossly intact. Rheumatologic--normal range of motion. Psychiatric--normal affect. Results & Data Vital Signs (Past 12 Hours) Vital Signs Temp Pulse Pulse Resp BP BP Pulse Ox 04/23/19 01:10 66 18 101/60 98 04/23/19 00:21 65 18 101/60 95 04/22/19 22:14 100.6 F H 81 17 93 04/22/19 20:46 102.2 F H 04/22/19 19:21 99.9 F H 100 H 18 165/91 H 98 Laboratory Results Laboratory Results WBC 12.47 K/uL (4.8-10.8) H 04/22/19 21:02 RBC 4.60 M/uL (4.2-5.4) 04/22/19 21:02 Hgb 13.5 g/dL (12.0-16.0) 04/22/19 21:02 Hct 39.8 % (37-47) 04/22/19 21:02 MCV 86.5 fL (80-100) 04/22/19 21:02 MCH 29.3 pg (25-34) 04/22/19 21:02 MCHC 33.9 g/dL (32-36) 04/22/19 21:02 RDW Std Deviation 42.4 fL (36.4-46.3) 04/22/19 21:02 RDW Coeff of Macey 13.3 % (11.5-14.5) 04/22/19 21:02 Plt Count 285 K/uL (130-400) 04/22/19 21:02 MPV 9.3 fL (7.4-10.4) 04/22/19 21:02 Immature Gran % (Auto) 0.3 % 04/22/19 21:02 Neut % (Auto) 85.0 % 04/22/19 21:02 Lymph % (Auto) 8.3 % 04/22/19 21:02 [place] % (Auto) 6.2 % 04/22/19 21:02 Eos % (Auto) 0.1 % 04/22/19 21:02 Baso % (Auto) 0.1 % 04/22/19 21:02 Immature Gran # (Auto) 0.04 K/uL (0.00-0.02) H 04/22/19 21:02 Neut # (Auto) 10.61 K/uL (1.4-6.5) H 04/22/19 21:02 Lymph # (Auto) 1.03 K/uL (1.2-3.4) L 04/22/19 21:02 [place] # (Auto) 0.77 K/uL (0.11-0.59) H 04/22/19 21:02 Eos # (Auto) 0.01 K/uL (0-0.5) 04/22/19 21:02 Baso # (Auto) 0.01 K/uL (0-0.2) 04/22/19 21:02 Sodium 139 mmol/L (136-145) 04/22/19 21:02 Potassium 3.8 mmol/L (3.5-5.1) 04/22/19 21:02 Chloride 106 mmol/L (98-107) 04/22/19 21:02 Carbon Dioxide 26 mmol/L (21-32) 04/22/19 21:02 Anion Gap 6.0 (3-11) 04/22/19 21:02 BUN 8 mg/dl (7-18) 04/22/19 21:02 Creatinine 0.81 mg/dl (0.6-1.2) 04/22/19 21:02 Est Cr Clr Drug Dosing 98.4 ml/min 04/22/19 21:02 Est GFR ( Amer) 101.7 04/22/19 21:02 Est GFR (Non-Af Amer) 87.7 04/22/19 21:02 BUN/Creatinine Ratio 9.9 (10-20) L 04/22/19 21:02 Glucose 96 mg/dl (70-99) 04/22/19 21:02 Lactate 1.0 mmol/L (0.4-2.0) 04/22/19 21:02 Calcium 9.2 mg/dl (8.5-10.1) 04/22/19 21:02 [phone] Report Patient: CHAVEZ DUKES Date: 04/22/19 MR#: [id number] Acct ID:[id number]: Date: 1975[facility] Zip: [place] [id number] Age: 43Location: ED Sex: F Room/Bed: Att Phy:Diagnosis: PAIN IN RT SIDE OF JAW, SWELLING Roxana Phy: Leonel De Leon III, MDService Date: 04/22/19 Fam Phy:Interpreting Phy: Dariel Erazo MD Admit Phy: Ordering Phy: Park Grace PA cc: ~ CT facial bones w con CLINICAL HISTORY: 43 years-old Female presenting with RIGHT LOWER DENTAL ABSCESS. TECHNIQUE: Multidetector CT of the face was performed after the administration of intravenous contrast. IV contrast: 93 mL of Optiray 320. One or more dose lowering techniques were used consistent with the principles of ALARA (as low as reasonably achievable), including automatic exposure control, mA or kV adjustment to individual patient size, and/or use of iterative reconstruction. COMPARISON: CT sinuses from 12/09/2008. CT DOSE (mGy.cm): The estimated cumulative dose is 241.26 mGy.cm. FINDINGS: Supervisor Rose Grading topogram: Unremarkable. Extensive swelling and infiltration of the right premandibular soft tissues infiltrated subcutaneous fat, edema of the right platysma muscle, and a rim- enhancing laminar collection along the right body of the mandible measuring 4 mm in thickness and extending approximately 2 cm along the length of the mandible. Extensive associated hyperenhancement buccal mucosa. There is an associated. Apical lucency and dental caries of the right mandibular first molar. Subtle cortical breakthrough along the buccal aspect of the right mandible noted (series 3 image 202). This region was not included within the field of view on the prior exam for comparison. The remaining teeth do not demonstrate periapical lucency or significant dental caries appreciable by CT. Amalgam limits evaluation. Nonspecific extensive mucosal thickening in the ethmoid air cells and maxillary sinuses. Aerated secretions also noted in the left maxillary sinus. Mastoid air cells clear. Limited intracranial evaluation within normal limits. Vasculature patent. Thyroid, parotid, submandibular glands normal. Orbits normal. Few prominent lymph nodes noted in the right submandibular region likely reactive. Cervical spine normal. IMPRESSION: 1. Odontogenic abscess measuring 20 x 4 mm along the right body of the mandible associated with cortical breakthrough at the periapical abscess at the right mandibular first molar. 2. Extensive associated cellulitis or inflammatory changes in the right perimandibular soft tissues. 3. Reactive right submandibular lymphadenopathy. 4. Aerated secretions in the left maxillary sinus associated with scattered mucosal thickening. Correlate clinically to exclude acute sinusitis. ACT 112: Negative or not required by law. Electronically signed by: Dariel Erazo M.D. 04/22/2019 10:14 PM Dictated: 04/22/192208 Transcribed: 04/22/192208 Code Status & VTE Plan Code Status Full code VTE Prophylaxis Plan VTE Prophylaxis will be ordered: Yes PG Care Time/CCT Total # of Minutes Spent Total Time Spent with Patient: Total time spent is greater than 50% in coordination of care (as documented) at patient's floor/unit and/or counseling patient:
[2019-04-23] MEDS: CLINDAMYCIN 600 MG in DEXTROSE 5% 50 ML IV SCH ×3 (02:12→18:18)
[2019-04-23] MEDS: NSS + 20MEQ KCL 20 MEQ/1,000 ML BAG IV SCH ×2 (02:12→14:04)
[2019-04-23] MEDS ORDERED: cefTRIAXone SODIUM 2,000 MG in DEXTROSE 5% 50 ML IV SCH (09:00)
[2019-04-23] MEDS: TRAMADOL HCL 50 MG TABLET PO PRN ×2 (09:47→14:03)
--- NOTE | 2019-04-23 17:04 | Hospitalist Progress Note ---
Date of Service April 23, 2019 Assessment & Plan (1) Dental abscess: Dental abscess involving right lower molar/right facial cellulitis/failure of outpatient amoxicillin 500mg TID x7 days Patient was given a single dose of Unasyn 3 g IV after I&D on 04/22 Placed on ceftriaxone 1 g IV daily and clindamycin 600 mg IV every 8 hours----d/c ceftriaxone and monitor on single agent (last 04/23 10a) Wound and blood cx pending WBC elevated on admission, monitor Lactic acid WNL (2) Cellulitis of face: See above (3) Failure of outpatient treatment: See above (4) Asthma: No symptoms (5) Stomach problems: No symptoms Subjective Pt still with R sided facial swelling, redness, and tenderness, but all are improving. Still with some swallowing difficulties but better also. Tolerating PO otherwise. She feels she is much improved from [employer]. Pt denies fever, SOB, chest pain, abd pain, n/v/c/d, LE pain or swelling. Review of Systems Review of Systems: Pertinent positives and negatives reviewed in HPI--all others negative Physical Exam Constitutional: WD/WN, vitals as above Eyes: normal visual coleman by confrontation and + anicteric sclerae ENMT: Nose: + face asymmetric, + facial edema (R sided) and + facial tenderness (R sided) Neck: normal visual inspection and trachea midline Respiratory: normal respiratory effort, lungs clear to auscultation Cardiovascular: Rate/Rhythm: regular rate and regular rhythm Gastrointestinal (Abdomen): Inspection/Auscultation: abdomen not distended Percussion/Palpation: abdomen soft; abdomen nontender Musculoskeletal: Head/Neck/Chest: normocephalic and head atraumatic negative for edema, peripheral pulses intact Skin: no rashes, warm and dry + erythema (R mandibular region into neck) Neurologic: awake; not confused Speech / Cognition: normal speech Psychiatric: A+Ox3, euthymic affect Results & Data Vital Signs (Past 12 Hours) Vital Signs Temp Pulse Pulse Resp BP Pulse Ox 04/23/19 15:23 37.0 C 63 16 110/72 96 04/23/19 07:40 36.9 C 72 20 114/69 94 PG Care Time/CCT Total # of Minutes Spent Total Time Spent with Patient: Total time spent is greater than 50% in coordination of care (as documented) at patient's floor/unit and/or counseling patient:
[2019-04-24] MEDS: NSS + 20MEQ KCL 20 MEQ/1,000 ML BAG IV SCH ×2 (00:30→10:25)
[2019-04-24] MEDS: TRAMADOL HCL 50 MG TABLET PO PRN (00:41)
[2019-04-24] MEDS: CLINDAMYCIN 600 MG in DEXTROSE 5% 50 ML IV SCH ×2 (02:56→10:25)
[2019-04-24 05:57] LABS: Basophils # (auto) 0.02 K/uL (0-0.2); Basophils % (auto) 0.3 %; Eosinophils % (auto) 1.5 %; Hematocrit (blood only) 35.2 % (37-47); Hemoglobin 11.3 g/dL (12.0-16.0); Immature Granulocytes # (auto) 0.01 K/uL (0.00-0.02); Immature Granulocytes % (auto) 0.2 %; Lymphocytes # (auto) 2.18 K/uL (1.2-3.4); Lymphocytes % (auto) 33.3 %; Mean Corpuscular Hemoglobin 28.9 pg (25-34); Mean Corpuscular Hgb Conc 32.1 g/dL (32-36); Mean Platelet Volume 9.1 fL (7.4-10.4); Monocytes # (auto) 0.74 K/uL (0.11-0.59); Monocytes % (auto) 11.3 %; Neutrophils # (auto) 3.49 K/uL (1.4-6.5); Neutrophils % (auto) 53.4 %; Platelet Count 235 K/uL (130-400); RDW Coefficient of Variation 13.6 % (11.5-14.5); RDW Standard Deviation 44.4 fL (36.4-46.3); Red Blood Count 3.91 M/uL (4.2-5.4); White Blood Count 6.54 K/uL (4.8-10.8)
--- NOTE | 2019-04-24 10:58 | Discharge Summary ---
Date of Service April 24, 2019 Admission HPI Per Admitting Provider The patient is a 43-year-old female with a past medical history including GERD and asthma who presents to the emergency department with fevers, chills, persistence and worsening of right lower molar swelling and pain along with new right facial swelling. She initially been treated in the outpatient setting with 2 weeks of amoxicillin by her dentist, had a return of symptoms after 3 days, was then given additional prescription for amoxicillin. She presents the emergency department because of worsening symptoms. In the ED, she had incision and drainage performed, and was given a dose of Unasyn 3 g IV. Since Unasyn is on national back order, she will be admitted on ceftriaxone and clindamycin IV. Principal Diagnosis Pt is doing much better. She still has pain related to the R side of her face/jaw, but it is much better and minimal. She is eating better and minimal pain with swallowing. She still feels some swelling, but also better. Redness is resolved. Pt denies fever, SOB, chest pain, abd pain, n/v/c/d, LE pain or swelling. Discharge Exam Constitutional WD/WN, vitals as above Eyes normal visual coleman by confrontation and + anicteric sclerae ENMT Nose: + facial edema (R sided and minimal) and + facial tenderness (R sided, minimal) Neck normal visual inspection and trachea midline Respiratory normal respiratory effort, lungs clear to auscultation Cardiovascular Rate/Rhythm: regular rate and regular rhythm Gastrointestinal (Abdomen) Inspection/Auscultation: abdomen not distended Percussion/Palpation: abdomen soft; abdomen nontender Musculoskeletal Head/Neck/Chest: normocephalic and head atraumatic Skin no rashes, warm and dry Neurologic awake; not confused Speech / Cognition: normal speech Psychiatric A+Ox3, euthymic affect Discharge Data Allergies Allergy/AdvReac Type Severity Reaction Status Date / Time codeine Allergy Unknown Unknown Verified 04/23/19 00:06 Consultations 04/22/19 23:32 ED Decision to Admit Stat 04/23/19 01:33 Consult Case Management - Discharge Planning Routine Ordered Studies 04/22/19 20:45 CT facial bones w con Stat Hospital Course (1) Dental abscess: Dental abscess involving right lower molar/right facial cellulitis/failure of outpatient amoxicillin 500mg TID x7 days Patient was given a single dose of Unasyn 3 g IV after I&D on 04/22 Placed on ceftriaxone 1 g IV daily and clindamycin 600 mg IV every 8 hours on admission, d/c with clinda to complete abx as oupt Blood cx neg on prelim WBC elevated on admission, WNL on d/c Lactic acid WNL f/u with dentistry for further management Advised probiotic (2) Cellulitis of face: See above Much improved (3) Failure of outpatient treatment: See above (4) Asthma: No symptoms Total Time Total Time Spent Total Time Spent (In Minutes): >30 Total Time Includes: Examination of the Patient, Discharge Planning, Medication Reconciliation and Other Discharge Plan Discharge Items Patient Disposition: Home - Self-Care Reason For Visit: DENTAL ABSCESS Discharge Diagnosis: Dental abscess, failed outpatient treatment Activity: Resume your previous activity Non-emergency contact: Primary Care Provider Call non-emergency contact if: you have any medication questions, your pain is not controlled and your pain is worsening Follow-up/Referrals: Leonel De Leon III, MD [Primary Care Provider] - Diet: Regular Addtl Attending Provider Instructions: You should follow up with your dentist for further care regarding your tooth. You should start taking a probiotic while you are on an antibiotic. The one I recommend for most patients is Jarrow EPS 5 billion. It is a mix of 8 different bacteria. You can find this product at [employer] in [place]. You should start with 1 a day. You should take the probiotic about 30 minutes before you take your antibiotic, as least once a day. If you are having diarrhea, it may be due to the antibiotic and you can take the probiotic twice a day before a second dose of antibiotic. Pending Studies at Discharge: Yes Studies:: Final blood culture (prelim negative) Stand-Alone Forms: [facility], Smoking Cessation Medications and DC Order Prescriptions: New clindamycin HCl 300 mg capsule 300 mg PO Q6H 10 Days Qty: 40 RF: 0 No Action No Known Home Medications RF: 0 Discharge Orders: Discharge Order (Routine); Ordered 04/24/19 Ordered By: Yelitza Hou Admission Data Admit Date/Time: 04/23/19 00:28 Attending Provider: Yelitza Hou Admit Provider: Chris Zeng Primary Care Provider: Leonel De Leon III Other Providers: Chris Zeng Other Interventions: Discharge Summary Assessment (RN) Last Done: 04/24/19 11:00 DC Date/Time DO NOT enter until pt leaves facility: 04/24/19 12:11
== END 2019-04-24 12:11 | disposition home or self-care (01) ==
LOC: ED 19:14 → 3N 19:14 → SUATTDRO 04-23 00:28 → 3N 04-23 01:14